=== PATIENT | male | born 1975 | race Two or more races ===

== ENCOUNTER 2023-12-12 07:12 | Emergency (ER) | payer OTHER ==
[~2023-12-12] VITALS: Ht 172.7 cm; Wt 90.7 kg
[2023-12-12 07:36] VITALS: TEMP 98.6
[2023-12-12 08:26] LABS: BASOPHILS # (AUTO) 0.1 K/uL (0.0-0.2); BASOPHILS % (AUTO) 0.6 % (0.0-2.0); EOSINOPHILS # (AUTO) 0.1 K/uL (0.0-0.7); EOSINOPHILS % (AUTO) 0.7 % (0.0-6.0); HEMATOCRIT 41 % (39-51); HEMOGLOBIN 13.8 g/dL (13.5-17.5); LYMPHOCYTES # (AUTO) 1.4 K/uL (0.8-4.8); LYMPHOCYTES % (AUTO) 15.1 % (20.0-44.0); MEAN CORPUSCULAR HEMOGLOBIN 29 PG (26.0-33.0); MEAN CORPUSCULAR HGB CONC 33 g/dl (31.0-36.0); MEAN CORPUSCULAR VOLUME 87 fL (80-96); MONOCYTES # (AUTO) 0.8 K/uL (0.1-1.30); MONOCYTES % (AUTO) 8.5 % (2.0-12.0); NEUTROPHILS # (AUTO) 7.1 K/uL (1.8-8.9); NEUTROPHILS % (AUTO) 75.1 % (43.0-81.0); PLATELET COUNT (AUTO) 196 K/uL (150-450); RED BLOOD CELL COUNT(AUTO) 4.74 MIL/uL (4.5-6.0); RED CELL DISTRIBUTION WIDTH 14.3 % (11.5-15.0); WHITE BLOOD COUNT (AUTO) 9.5 K/uL (4.3-11.0)
[2023-12-12] MEDS ORDERED: ONDANSETRON HCL/PF 4 MG/2 ML VIAL ONE (08:35)
[2023-12-12] MEDS ORDERED: MORPHINE SULFATE INJ 4 MG/ML DISP.SYRIN ONE ×3 (08:36→13:49)
[2023-12-12 08:39] LABS: INR 1.1 (0.91-1.10); PARTIAL THROMBOPLASTIN TIME 27.6 SEC (24.3-34.3); PROTHROMBIN TIME 11.6 SECS (9.2-11.1)
[2023-12-12] MEDS: MORPHINE SULFATE INJ 2 MG/ML DISP.SYRIN IV ONE ×3 (08:39→15:29)
[2023-12-12] MEDS: ONDANSETRON HCL/PF 4 MG/2 ML VIAL IVP ONE (08:39)
[2023-12-12 08:47] LABS: LACTIC ACID 1.4 mmol/L (0.4-2.0)
[2023-12-12 08:51] LABS: APPEARANCE,URINE CLEAR (CLEAR); BILIRUBIN,URINE NEGATIVE (NEGATIVE); BLOOD, URINE NEGATIVE Ery/uL (NEGATIVE); COLOR,URINE YELLOW (YELLOW); KETONES,URINE NEGATIVE (NEGATIVE); LEUKOCYTE ESTERASE ,URINE NEGATIVE (NEGATIVE); NITRITE, URINE NEGATIVE (NEGATIVE); PH,URINE 5.5 (5.0-8.0); PROTEIN,URINE NEGATIVE (NEGATIVE); UGLUCOSE NEGATIVE (NEGATIVE); UROBILINOGEN,URINE 0.2 EU/dL (0.2)
[2023-12-12] MEDS: IV NS 0.9% 1,000 ML BAG IV ONE (08:51)
[2023-12-12 08:59] LABS: ALBUMIN 3.8 g/dL (3.4-5.0); BILIRUBIN,DIRECT 0.2 mg/dL (0.0-0.2); BILIRUBIN,TOTAL 0.7 mg/dL (0.2-1.0); CALCIUM, SERUM 9.3 mg/dL (8.5-10.1); CREATININE 1.1 mg/dL (0.6-1.3); POTASSIUM 4.4 mmol/L (3.5-5.1); TOTAL PROTEIN, SERUM 6.9 g/dL (6.4-8.2)
[2023-12-12] MEDS ORDERED: IV NS 0.9% 250 ML IV ONE (09:06)
[2023-12-12] MEDS ORDERED: IOHEXOL-350 100 ML VIAL IV ONE (09:06)
[2023-12-12] MEDS ORDERED: DICY10CA37 PO (13:03)
[2023-12-12] MEDS ORDERED: AMLO-213 PO (13:58)
[2023-12-12] MEDS ORDERED: APIX5TAB PO (13:58)
[2023-12-12] MEDS ORDERED: NEBI5TAB8 PO (13:58)
[2023-12-12] MEDS ORDERED: IRBE300T19 PO (13:58)
[2023-12-12 17:33] VITALS: BP 110/70; O2SAT 100
== END 2023-12-12 16:45 | disposition home or self-care (01) ==
LOC: ER 07:28
DX: R10.32 Left lower quadrant pain (principal); R68.83 Chills (without fever); I10 Essential (primary) hypertension; Z86.73 Personal history of transient ischemic attack (TIA), and cerebral infarction without residual deficits; Z90.49 Acquired absence of other specified parts of digestive tract
CPT/HCPCS: 99285; 74174; 96374; 96361; 96375; 85025; 80048; 87086; 83605; 83690; 80076; 81003; 36415; 85730; 96376; J2270 ×3; J2405; J7030; J7050; Q9967